=== PATIENT | female | born 1965 | race African-American/Black ===

== ENCOUNTER 2021-08-06 12:13 | Outpatient (CLI) | payer OTHER | END 2021-08-06 12:14 | disposition home or self-care (01) | LOC: CSHMAMMO 12:13 | PROVIDERS: ATTEND Family Medicine | DX: Z12.31 Encounter for screening mammogram for malignant neoplasm of breast (principal) | CPT/HCPCS: 77063; 77067 ==

== ENCOUNTER 2022-08-26 13:00 | Outpatient (CLI) | payer OTHER | END 2022-08-26 13:01 | disposition home or self-care (01) | LOC: CSHMAMMO 13:00 | PROVIDERS: ATTEND Family Medicine | DX: Z12.31 Encounter for screening mammogram for malignant neoplasm of breast (principal) | CPT/HCPCS: 77063; 77067 ==